=== PATIENT | male | born 1970 | race Caucasian/White ===

== ENCOUNTER 2022-01-18 08:51 | Outpatient (CLI) | payer BC, SELFPAY ==
[2022-01-18 15:33] LABS: SARS PCR* Negative SARS-CoV-2 (Negative)
== END 2022-01-18 08:52 | disposition home or self-care (01) ==
LOC: FBOREF 08:52
PROVIDERS: Visit Provider Internal Medicine
DX: Z20.822 Contact with and (suspected) exposure to COVID-19 (principal)
CPT/HCPCS: 87635

== ENCOUNTER 2022-01-19 07:44 | Outpatient (CLI) | payer BC, SELFPAY | END 2022-01-19 07:45 | disposition home or self-care (01) | PROVIDERS: PCP Family Medicine; Visit Provider Internal Medicine | DX: R19.5 Other fecal abnormalities (principal); K63.5 Polyp of colon; K57.30 Diverticulosis of large intestine without perforation or abscess without bleeding | CPT/HCPCS: 45380; 88305; J2250; J3010 ==